=== PATIENT | female | born 1970 | race Caucasian/White ===

== ENCOUNTER 2018-01-14 08:28 | Emergency (ER) | payer OTHER, SELFPAY ==
[2018-01-14 08:35] VITALS: BP 109/79; PULSE 93; RESP 18; TEMP 38.2; O2SAT 97
--- NOTE | 2018-01-14 08:51 | W.ED.GENAD ---
Discharge Plan Disposition Patient Disposition: HOME Condition: Fair Discharge Details Chief Complaint: Fever Clinical Impression: URI (upper respiratory infection) Reason For Visit: LIZETH Primary Care Provider: Juliette Shrestha ED Provider: Melony Jaimes Home Meds and New Rx's Prescriptions: No Action No Known Home Meds RF: 0 Discharge Instructions Instructions: Upper Respiratory Infection (ED) Additional Instructions: Encourage hydration. Tylenol and/or ibuprofen as needed for discomfort or fever. Please follow-up with primary care in the next week if symptoms persist. If you develop difficulty breathing, shortness of breath, develop recurrent severe dizziness, chest pain or other new/worsening symptoms please seek care urgently once again Stand Alone Forms: Work Release Referrals: Juliette Shrestha [Primary Care Provider] - Discharge Data Discharge Date/Time-TO BE ENTERED AT DEPARTURE: 01/14/18 13:19 Medical Decision Making Patient is a 47-year-old female, brought in via EMS, with chief complaint of fever. She reports that she initially became ill 2 days ago. States that initially she was feeling cold. Subsequently developed body aches she states are typically in the hips and shoulders. Reports that beginning yesterday she noted a mild dry cough. Denies any difficulty breathing or shortness of breath. Reports that this morning, while getting out of the shower, she became dizzy. Describes further as being lightheaded. States that during this episode, which lasted approximately 15 minutes, she felt nauseated. The symptom has since subsided. Reports at this point that she is achy and feels warm but otherwise is no longer endorsing the lightheadedness. No chest pain. Patient has history of osteoarthritis, fibromyalgia and basal cell carcinoma. She denies any known sick contacts. Patient appears nontoxic, is resting comfortably. Lungs are clear on exam. No abnormalities noted in the oropharynx. Temp is 38.2. Exam is otherwise without acute abnormality. Will obtain flu swab, laboratory evaluation. At this point, patient's lungs are clear and do not feel that imaging is warranted we will hydrate the patient and give oral antipyretic. EKG reviewed by Dr. Lopez, no ischemic changes noted. NSR, rate of 92. Laboratory evaluation significant for minor amount of blood on the urinalysis. Patient is also noted to have 10-20 WBCs. Many epithelial cells moderate amount of bacteria. Patient denies any urinary symptoms. Secondary to contamination, has not been sent for culture. Patient reports she had urinary tract infections in the past and typically quite symptomatic, denies any symptoms at this point. We will not continue to evaluate for this any further. No leukocytosis. Magnesium is only minimally low, otherwise no electrolyte abnormalities. Influenza negative. discussed these findings with the patient. At this point, patient symptoms are most consistent with viral illness. Encourage hydration and she does seem to be doing better after hydration here. She responded well to antipyretic. Reports that she continues to feel fatigued but overall looks improved. Ambulated about the department with no desaturations or tachycardia. Cardiac she did not feel lightheaded, no presyncopal episodes. Patient was given strict return precautions. Encourage hydration. We discussed home remedies that may help with symptomatic management. I advised close follow-up with primary care. All of her questions and concerns were addressed and she is in agreement this plan. HPI General Mode of arrival: EMS. Date/Time Provider Initiated Documentation: 01/14/18 08:49. Limitations to Documentation: no limitations. Information obtained by: patient and family. History of Present Illness 47 year old F presents to the emergency department with the chief complaint of fever, described as mild, with intensity rated at 2 (endorses sore throat and body aches. no focal area of tenderness). Quality is described as aching, Patient started experiencing this day(s) (2) and it has been constant. No relieving factors improve symptom(s), No exacerbating factors reported and Movement worsens symptoms (patient has worsening symptoms with activity) . Patient notes cough, fever/chills, loss of appetite, malaise, nausea/vomiting (nasuea episode for 15 minutes, this has since resolved) and weakness; denies chest pain, diaphoresis, headaches, rash, shortness of breath and syncope (reports near syncope). Patient did receive the following treatments prior to arrival, none Related Data Home Medications Medication Instructions Recorded Confirmed Unknown [No Known Home Meds] 02/25/13 01/14/18 Allergies Allergy/AdvReac Type Severity Reaction Status Date / Time erythromycin base AdvReac Intermediate Nausea Unverified 01/14/18 08:38 [Erythromycin Base] General Stated Complaint: Fever JAXON: 3 Review of Systems Constitutional Reports as per HPI and Denies headache(s) Eyes Denies change in vision and Denies eye discharge ENT Denies ear discharge, Denies otalgia, Denies facial pain, Denies headache(s), Denies mouth pain, Reports nasal congestion, Reports nasal discharge, Reports sinus pressure and Reports sore throat Cardiovascular Denies chest pain, Denies syncope (presyncope prior to arrival when getting out of shower), Denies rapid heart rate, Denies pedal edema, Denies irregular heart rhythm, Denies claudication, Reports lightheadedness (presyncope prior to arrival when getting out of shower), Denies dyspnea and Denies dyspnea on exertion Respiratory Reports chest congestion, Reports cough, Denies dyspnea, Denies dyspnea on exertion and Denies wheezing Gastrointestinal Reports as per HPI, Denies abdominal pain, Reports nausea and Denies vomiting Genitourinary Denies system reviewed and no additional complaints, except as docu (denies any change in urinary habits) Musculoskeletal Reports as per HPI and Reports myalgias (endorses diffuse body aches) Integumentary/Breasts Denies rash Neurologic Denies syncope (presyncope prior to arrival when getting out of shower) and Denies headache(s) Allergic/Immunologic Denies wheezing [facility] Social History Smoking/Tobacco Use Status: Never Exam Const General: cooperative, healthy appearing, comfortable, no acute distress, well developed and well groomed Nutritional Appearance: average body habitus and well nourished Orientation: alert and awake [facility] Head: normal to inspection, normocephalic and atraumatic Ears: hearing grossly normal bilaterally, external ears normal and TM's normal bilaterally General nose exam: external nose normal and nares normal Face and sinus: normal facial exam, face symmetric and sinus tenderness maxillary Mouth: lip normal, tongue normal, oropharynx normal, mucous membranes dry (appears dry on exam), no muffled voice and no trismus Throat: posterior oropharynx abnormal (mild erythema), tonsils normal and uvula midline Eyes General: appearance normal, both eyes and all related structures Neck Neck: normal visual inspection, no lymphadenopathy and no meningeal signs Resp Effort & Inspection: normal respiratory effort, able to speak in complete sentences and no respiratory distress Auscultation: clear to auscultation bilaterally, no rales, no rhonchi and no wheezes Cardio Rate: regular rate Rhythm: regular rhythm Heart Sounds: S1 normal and S2 normal GI Inspection: normal to inspection Palpation: soft, not firm, no guarding and nontender Skin General skin exam: no rashes or lesions noted Lesions: no lesions Rashes: no rashes Neuro General: alert, awake and oriented x3 Cranial Nerves: CN's II-XI intact bilaterally Cognition: normal cognition Speech: speech normal Gait: normal gait Motor: muscle tone normal throughout Sensory Exam: no sensory deficits noted Extrem General: no pedal edema, no calf tenderness and normal gait Psych Appearance: grossly normal and well kempt Mental Status: mental status grossly normal Speech and Movement: speech and movement normal Mood: congruent mood Course Vital Signs Temperature 38.2 C H 01/14/18 08:35 Pulse 93 H 01/14/18 08:35 Respiratory Rate 18 01/14/18 08:35 Blood Pressure 109/79 01/14/18 08:35 Pulse Oximetry 97 01/14/18 08:35 Temperature 38.2 C H 01/14/18 08:35 Temperature Source Skin 01/14/18 08:35 Pulse 93 H 01/14/18 08:35 Respiratory Rate 18 01/14/18 08:35 Respiratory Effort 01/14/18 08:37 Blood Pressure 109/79 01/14/18 08:35 Pulse Oximetry 97 01/14/18 08:35 Oxygen Delivery Method Room Air 01/14/18 08:35 Oxygen Flow Rate 0 01/14/18 08:35 Pain Level 2 01/14/18 08:35
--- NOTE | 2018-01-14 09:01 | ED.GENADUL_ITS ---
Discharge Plan Disposition Patient Disposition: HOME Condition: Fair Discharge Details Chief Complaint: Fever Clinical Impression: URI (upper respiratory infection) Reason For Visit: LIZETH Primary Care Provider: Juliette Shrestha ED Provider: Melony Jaimes Home Meds and New Rx's Prescriptions: No Action No Known Home Meds RF: 0 Discharge Instructions Instructions: Upper Respiratory Infection (ED) Additional Instructions: Encourage hydration. Tylenol and/or ibuprofen as needed for discomfort or fever. Please follow-up with primary care in the next week if symptoms persist. If you develop difficulty breathing, shortness of breath, develop recurrent severe dizziness, chest pain or other new/worsening symptoms please seek care urgently once again Stand Alone Forms: Work Release Referrals: Juliette Shrestha [Primary Care Provider] - Discharge Data Discharge Date/Time-TO BE ENTERED AT DEPARTURE: 01/14/18 13:19 Medical Decision Making Patient is a 47-year-old female, brought in via EMS, with chief complaint of fever. She reports that she initially became ill 2 days ago. States that initially she was feeling cold. Subsequently developed body aches she states are typically in the hips and shoulders. Reports that beginning yesterday she noted a mild dry cough. Denies any difficulty breathing or shortness of breath. Reports that this morning, while getting out of the shower, she became dizzy. Describes further as being lightheaded. States that during this episode, which lasted approximately 15 minutes, she felt nauseated. The symptom has since subsided. Reports at this point that she is achy and feels warm but otherwise is no longer endorsing the lightheadedness. No chest pain. Patient has history of osteoarthritis, fibromyalgia and basal cell carcinoma. She denies any known sick contacts. Patient appears nontoxic, is resting comfortably. Lungs are clear on exam. No abnormalities noted in the oropharynx. Temp is 38.2. Exam is otherwise without acute abnormality. Will obtain flu swab, laboratory evaluation. At this point, patient's lungs are clear and do not feel that imaging is warranted we will hydrate the patient and give oral antipyretic. EKG reviewed by Dr. Lopez, no ischemic changes noted. NSR, rate of 92. Laboratory evaluation significant for minor amount of blood on the urinalysis. Patient is also noted to have 10-20 WBCs. Many epithelial cells moderate amount of bacteria. Patient denies any urinary symptoms. Secondary to contamination, has not been sent for culture. Patient reports she had urinary tract infections in the past and typically quite symptomatic, denies any symptoms at this point. We will not continue to evaluate for this any further. No leukocytosis. Magnesium is only minimally low, otherwise no electrolyte abnormalities. Influenza negative. discussed these findings with the patient. At this point, patient symptoms are most consistent with viral illness. Encourage hydration and she does seem to be doing better after hydration here. She responded well to antipyretic. Reports that she continues to feel fatigued but overall looks improved. Ambulated about the department with no desaturations or tachycardia. Cardiac she did not feel lightheaded, no presyncopal episodes. Patient was given strict return precautions. Encourage hydration. We discussed home remedies that may help with symptomatic management. I advised close follow-up with primary care. All of her questions and concerns were addressed and she is in agreement this plan. HPI General Mode of arrival: EMS . Date/Time Provider Initiated Documentation: 01/14/18 08:49 . Limitations to Documentation: no limitations . Information obtained by: patient and family . History of Present Illness 47 year old F presents to the emergency department with the chief complaint of fever, described as mild, with intensity rated at 2 (endorses sore throat and body aches. no focal area of tenderness). Quality is described as aching, Patient started experiencing this day(s) (2) and it has been constant. No relieving factors improve symptom(s), No exacerbating factors reported and Movement worsens symptoms (patient has worsening symptoms with activity) . Patient notes cough, fever/chills, loss of appetite, malaise, nausea/vomiting ( nasuea episode for 15 minutes, this has since resolved) and weakness; denies chest pain, diaphoresis, headaches, rash, shortness of breath and syncope ( reports near syncope). Patient did receive the following treatments prior to arrival, none Related Data Home Medications Medication Instructions Recorded Confirmed Unknown [No Known Home Meds] 02/25/13 01/14/18 Allergies Allergy/AdvReac Type Severity Reaction Status Date / Time erythromycin base AdvReac Intermediate Nausea Unverified 01/14/18 08:38 [Erythromycin Base] General Stated Complaint: Fever JAXON: 3 Review of Systems Constitutional Reports as per HPI and Denies headache(s) Eyes Denies change in vision and Denies eye discharge ENT Denies ear discharge, Denies otalgia, Denies facial pain, Denies headache(s), Denies mouth pain, Reports nasal congestion, Reports nasal discharge, Reports sinus pressure and Reports sore throat Cardiovascular Denies chest pain, Denies syncope (presyncope prior to arrival when getting out of shower), Denies rapid heart rate, Denies pedal edema, Denies irregular heart rhythm, Denies claudication, Reports lightheadedness (presyncope prior to arrival when getting out of shower), Denies dyspnea and Denies dyspnea on exertion Respiratory Reports chest congestion, Reports cough, Denies dyspnea, Denies dyspnea on exertion and Denies wheezing Gastrointestinal Reports as per HPI, Denies abdominal pain, Reports nausea and Denies vomiting Genitourinary Denies system reviewed and no additional complaints, except as docu (denies any change in urinary habits) Musculoskeletal Reports as per HPI and Reports myalgias (endorses diffuse body aches) Integumentary/Breasts Denies rash Neurologic Denies syncope (presyncope prior to arrival when getting out of shower) and Denies headache(s) Allergic/Immunologic Denies wheezing [facility] Social History Smoking/Tobacco Use Status: Never Exam Const General: cooperative, healthy appearing, comfortable, no acute distress, well developed and well groomed Nutritional Appearance: average body habitus and well nourished Orientation: alert and awake [facility] [place] Head: normal to inspection, normocephalic and atraumatic Ears: hearing grossly normal bilaterally, external ears normal and TM's normal bilaterally General nose exam: external nose normal and nares normal Face and sinus: normal facial exam, face symmetric and sinus tenderness maxillary Mouth: lip normal, tongue normal, oropharynx normal, mucous membranes dry ( appears dry on exam), no muffled voice and no trismus Throat: posterior oropharynx abnormal (mild erythema), tonsils normal and uvula midline Eyes General: appearance normal, both eyes and all related structures Neck Neck: normal visual inspection, no lymphadenopathy and no meningeal signs Resp Effort & Inspection: normal respiratory effort, able to speak in complete sentences and no respiratory distress Auscultation: clear to auscultation bilaterally, no rales, no rhonchi and no wheezes Cardio Rate: regular rate Rhythm: regular rhythm Heart Sounds: S1 normal and S2 normal GI Inspection: normal to inspection Palpation: soft, not firm, no guarding and nontender Skin General skin exam: no rashes or lesions noted Lesions: no lesions Rashes: no rashes Neuro General: alert, awake and oriented x3 Cranial Nerves: CN's II-XI intact bilaterally Cognition: normal cognition Speech: speech normal Gait: normal gait Motor: muscle tone normal throughout Sensory Exam: no sensory deficits noted Extrem General: no pedal edema, no calf tenderness and normal gait Psych Appearance: grossly normal and well kempt Mental Status: mental status grossly normal Speech and Movement: speech and movement normal Mood: congruent mood Course Vital Signs Temperature 38.2 C H 01/14/18 08:35 Pulse 93 H 01/14/18 08:35 Respiratory Rate 18 01/14/18 08:35 Blood Pressure 109/79 01/14/18 08:35 Pulse Oximetry 97 01/14/18 08:35 Temperature 38.2 C H 01/14/18 08:35 Temperature Source Skin 01/14/18 08:35 Pulse 93 H 01/14/18 08:35 Respiratory Rate 18 01/14/18 08:35 Respiratory Effort 01/14/18 08:37 Blood Pressure 109/79 01/14/18 08:35 Pulse Oximetry 97 01/14/18 08:35 Oxygen Delivery Method Room Air 01/14/18 08:35 Oxygen Flow Rate 0 01/14/18 08:35 Pain Level 2 01/14/18 08:35
[2018-01-14] MEDS: Normal Saline 1,000 ML 1000 ML IV (09:30)
[2018-01-14 10:08] LABS: Abs Immature Grans 0.02 k/cumm (0.0-0.09); Absolute Basophil Count 0.03 k/cumm (0.0-0.2); Absolute Eosinophil Count 0.13 k/cumm (0.0-0.7); Absolute Neutrophil Count 6.16 k/cumm (1.2-6.7); Basophils % 0.4; Eosinophils % 1.5; HCT 36.1 % (36.0-46.0); HGB 11.6 g/dL (12.0-15.5); Immature Grans % 0.2; Lymphocytes % 17.8; Mean Corp. HGB Concentration 32.1 g/dL (32.0-36.0); Mean Corpuscular Hemoglobin 23.3 pg (27.0-33.0); Mean Corpuscular Volume 72.6 fL (80-95); Mean Platelet Volume 9.2 fL (8.0-11.0); Monocytes % 7.1; Platelet Count 336 x1000/uL (130-400); RBC 4.97 m/cumm (4.00-5.20); RBC Distribution Width 15.4 % (11.7-14.6); White Blood Cell Count 8.44 k/cumm (4.4-10.8)
[2018-01-14 10:19] LABS: ALT 26 U/L (12-78); AST 19 U/L (15-37); Albumin 3.2 g/dL (3.4-5.0); Alkaline Phosphatase 134 U/L (46-116); Anion Gap 10.6 mmol/L (3-11); BUN 8 mg/dL (7-18); Bilirubin, Total 0.2 mg/dL (0.2-1.0); CO2 23.4 mmol/L (21.0-32.0); CREATININE 0.85 mg/dL (0.55-1.02); Calcium 8.8 mg/dL (8.5-10.1); Chloride 101 mmol/L (98-107); Glucose 95 mg/dL (70-100); Magnesium 1.7 mg/dL (1.8-2.4); Potassium 3.6 mmol/L (3.5-5.1); Sodium 135 mmol/L (136-145); Total Protein 8.3 g/dL (6.4-8.2); Troponin I < 0.02 ng/mL (0.00-0.06)
[2018-01-14 10:33] LABS: Anisocytosis 1+; Diff Comment RBC Morph Reviewed
[2018-01-14 10:34] LABS: Hypochromasia 1+; Microcytosis 2+; Polychromasia Present
[2018-01-14] MEDS: Ibuprofen 600 MG TAB PO (11:20)
[2018-01-14 11:23] VITALS: BP 111/64; PULSE 92; RESP 18; TEMP 37.1; O2SAT 98
[2018-01-14 12:15] LABS: Bilirubin Negative (Negative); Blood Moderate (Negative); Clarity Clear; Glucose Negative (Negative); Ketones Negative (Negative); Leukocyte Esterase Trace (Negative); Nitrite Negative (Negative); Specific Gravity 1.015 (1.005-1.025); Urobilinogen 0.2 EU/dL (Up TO 0.2)
[2018-01-14 12:30] LABS: Bacteria Moderate HPF (Negative); C & S Indicated? No/Sq. Contamination; Casts Negative LPF (Negative); Crystals Negative HPF (Negative); Epithelial Cells Many HPF (Negative); Mucus Moderate (Negative); RBC 20-50 (0-2)
[2018-01-14 12:56] VITALS: BP 118/75; PULSE 88; RESP 16; TEMP 36.6; O2SAT 97
== END 2018-01-14 13:19 | disposition home or self-care (01) ==
PROVIDERS: Emergency Provider Physician Assistant; PCP Family Medicine
DX: J06.9 Acute upper respiratory infection, unspecified (principal); R42 Dizziness and giddiness
CPT/HCPCS: 36415; 80053; 87449; 93005; 96360; 99284; 81003; 81015; 83735; 84484; 85025; 93010

== ENCOUNTER 2019-05-10 10:41 | Emergency (ER) | payer BC, SELFPAY ==
[2019-05-10 10:46] VITALS: BP 125/78; PULSE 80; RESP 16; TEMP 36.6; O2SAT 100
--- NOTE | 2019-05-10 11:02 | W.ED.GENAD ---
Discharge Plan Disposition Patient Disposition: HOME Condition: Stable Discharge Details Chief Complaint: RashLesion Clinical Impression: Rash Primary Care Provider: Juliette Shrestha ED Provider: Jose Lopez Home Meds and New Rx's Prescriptions: New prednisone 20 mg tablet 40 mg PO DAILY 4 Days Qty: 8 RF: 0 Discharge Instructions Instructions: Acute Rash (ED), General Allergic Reaction (ED) Additional Instructions: Please take Benadryl 25 to 50 mg every 8 hours as needed for itching. Please take prednisone as prescribed. Your next dose is on 05/11/2019. I recommend you remove necklace and keep this off until symptoms completely resolved and 48 hours after completing prednisone therapy. And then trial again to see if this is the allergen. Please contact your primary care physician to arrange follow-up. Return to the ER for any worsening or new concerning symptoms. Referrals: Juliette Shrestha [Primary Care Provider] - Discharge Data Discharge Date/Time-TO BE ENTERED AT DEPARTURE: 05/10/19 12:39 Medical Decision Making 11:05 -- 48-year-old female here with new onset itchy rash involving her neck, upper chest upper back. Given prior nickel allergy and new necklace, suspect likely new jewelry as allergen. No oropharyngeal edema, lungs clear to auscultation. Patient was advised to remove the necklace. Plan to treat with Benadryl and prednisone and will reassess. -- On reassessment patient has had some improvement in rash. Continues to have no oropharyngeal swelling or respiratory symptoms. Plan will be to continue prednisone and Benadryl. I again encouraged her to remove her necklace and explained my reasoning for this. Patient was encouraged to follow-up with her primary care physician and to return immediately should she have any worsening or new concerning symptoms. HPI General Mode of arrival: ambulatory. Date/Time Provider Initiated Documentation: 05/10/19 10:52. Limitations to Documentation: no limitations. Information obtained by: patient. HPI Narrative: 48-year-old female presents with chief complaint of rash. Patient notes that she woke up with rash this morning. Rash was not present yesterday. Rash is localized to her neck upper chest, upper back. She also has some itching right lower leg. Rash is quite itchy. Slightly raised. Patient denies any known exposure to new fragrances, soaps or detergents. No new foods. She does have a nickel allergy and states that she got a new necklace and ring that she has been wearing for the past couple days. No associated tongue or lip swelling or difficulty breathing. Related Data Home Medications Medication Instructions Recorded Confirmed prednisone 40 mg PO DAILY 4 Days #8 tab 05/10/19 Previous Rx's Medication Instructions Recorded prednisone 40 mg PO DAILY 4 Days #8 tab 05/10/19 Allergies Allergy/AdvReac Type Severity Reaction Status Date / Time erythromycin base AdvReac Intermediate Nausea Unverified 05/10/19 10:48 [Erythromycin Base] General Stated Complaint: RashLesion JAXON: 4 Review of Systems All systems reviewed & are unremarkable except as noted in HPI and below Constitutional Constitutional: Denies fever(s) Integumentary/Breasts Skin/Breast: Reports as per HPI [facility] Social History Smoking/Tobacco Use Status: Never Drug use: Never Substance use type: does not use Do you feel safe at home: Yes Do you feel safe in your relationship?: Yes Exam Const General: cooperative and no acute distress HENMT Face and sinus: no edema Mouth: lip normal and moist mucous membranes Throat: posterior oropharynx normal Eyes Conjunctivae: normal conjunctivae Sclera: normal sclerae Neck Neck: trachea midline and supple Resp Auscultation: clear to auscultation bilaterally, no rales, no rhonchi and no wheezes Cardio Jugular venous pressure: no JVD Rate: regular rate and not tachycardic Rhythm: regular rhythm Skin Rashes: rashes noted (Fine, red, slightly raised rash neck and upper chest) Neuro General: alert, awake and tone normal Extrem General: no edema Course Vital Signs Vital signs: Vital Signs Temperature 36.6 C 05/10/19 10:46 Pulse 80 05/10/19 10:46 Respiratory Rate 16 05/10/19 10:46 Blood Pressure 125/78 05/10/19 10:46 Pulse Oximetry 100 05/10/19 10:46 Temperature 36.6 C 05/10/19 10:46 Temperature Source Skin 05/10/19 10:46 Pulse 80 05/10/19 10:46 Respiratory Rate 16 05/10/19 10:46 Respiratory Effort Non-Labored 05/10/19 10:50 Blood Pressure 125/78 05/10/19 10:46 Blood Pressure Position Sitting 05/10/19 10:46 Pulse Oximetry 100 05/10/19 10:46 Oxygen Delivery Method Room Air 05/10/19 10:46 Oxygen Flow Rate 0 05/10/19 10:46 Pain Level 6 05/10/19 10:46
[2019-05-10] MEDS: predniSONE 20 MG TAB 60 MG PO (11:07)
[2019-05-10] MEDS: diphenhydrAMINE 25 MG CAP 50 MG PO (11:07)
[2019-05-10 12:39] VITALS: BP 123/82; PULSE 68; RESP 16; O2SAT 100
== END 2019-05-10 12:39 | disposition home or self-care (01) ==
PROVIDERS: Emergency Provider Student in an Organized Health Care Education/Training Program; PCP Family Medicine
DX: R21 Rash and other nonspecific skin eruption (principal)
CPT/HCPCS: 99283; J7512

== ENCOUNTER 2021-04-20 19:46 | Outpatient (REF) | payer OTHER, SELFPAY ==
[2021-04-21 15:47] LABS: COVID-19 RT-PCR UVMMC Result Positive (Negative)
== END 2021-04-20 19:47 | disposition home or self-care (01) ==
LOC: NCHCN 19:46
PROVIDERS: PCP Family Medicine; Visit Provider Family Medicine
DX: Z20.822 Contact with and (suspected) exposure to COVID-19 (principal); J06.9 Acute upper respiratory infection, unspecified
CPT/HCPCS: U0003

== ENCOUNTER 2021-07-06 10:05 | Outpatient (REF) | payer OTHER, SELFPAY ==
--- NOTE | 2021-07-06 09:00 | PAPFT_PTH ---
PATIENT: Zoya Corbin LOC: NCN #:[id number] AGE/SX: 50/F ROOM: RE07/06/[address]: Juliette Shrestha : 1970 BED: DIS: 07/06/2021 SPEC #: [id number] RECD: 07/06/21 17:38 STATUS: CLEM REArlen #: [id number] JUAN FRANCISCO: 07/06/21 09:[address]: Juliette Shrestha DEPT: [facility] Cytology RECD BY: Leah Phillip Tissues: 1 - CX/ENDOCX FOR PAP SMEARS Procedures: PAP THIN PREP/UVM Screening HPV DNA PROBE Comments: [id number]
[2021-07-06 17:26] LABS: HGB 12.3 g/dL (11.2-15.7); MCH 25.7 pg (27.0-33.0); MCHC 31.5 % (32.0-36.0); MCV 81.4 fL (80-95); MPV 9.7 fL (8.0-11.0); Platelet Count 371 10^3/uL (130-400); RBC 4.79 10^6/uL (3.93-5.22); RDW 14.3 % (11.7-14.6); RDW-SD 41.9 fL; WBC 9.91 10^3/uL (4.4-10.8)
[2021-07-06 17:45] LABS: ALT 32 U/L (14-59); AST 18 U/L (15-37); Albumin 3.6 g/dL (3.4-5.0); Alkaline Phosphatase 126 U/L (46-116); Anion Gap 9.4 mmol/L (3-11); BUN 18 mg/dL (7-18); Bilirubin, Total 0.3 mg/dL (0.2-1.0); CO2 26.6 mmol/L (21.0-32.0); CREATININE 0.7 mg/dL (0.55-1.02); Calcium 8.9 mg/dL (8.5-10.1); Calculated LDL 123 mg/dL (<100); Chloride 103 mmol/L (98-107); Cholesterol 217 mg/dL (<200); Glucose 84 mg/dL (74-106); HDL Cholesterol 73 mg/dL (40-60); Potassium 4.1 mmol/L (3.5-5.1); Sodium 139 mmol/L (136-145); Total Protein 7.8 g/dL (6.4-8.2); Triglyceride 106 mg/dL (<150)
== END 2021-07-06 10:06 | disposition home or self-care (01) ==
LOC: NCHCN 10:05
PROVIDERS: PCP Family Medicine; Visit Provider Family Medicine
DX: Z00.00 Encounter for general adult medical examination without abnormal findings (principal); N92.0 Excessive and frequent menstruation with regular cycle; Z13.220 Encounter for screening for lipoid disorders; Z12.4 Encounter for screening for malignant neoplasm of cervix; Z11.51 Encounter for screening for human papillomavirus (HPV); Z01.419 Encounter for gynecological examination (general) (routine) without abnormal findings
CPT/HCPCS: 80053; 80061; 82306; 85027; 88142; 87624

== ENCOUNTER 2021-08-07 02:31 | Outpatient (CLI) | payer OTHER, SELFPAY ==
--- NOTE | 2021-08-07 07:40 | DI.MAMMO_ITS ---
Exam(s) MAMMO SCREENING EXAM: MAMMO SCREENING CLINICAL HISTORY: SCREENING, Z12.31 TECHNIQUE: Bilateral full field digital CC and MLO mammographic images were obtained with 3D tomosyn thesis and utilizing computer aided detection (CAD). COMPARISON: Available for comparison. FINDINGS: Masses/Architectural Distortion: None seen. Microcalcifications: No suspicious pleomorphic-type are seen. Skin Thickening/Nipple Retraction: None. IMPRESSION: 1. No significant interval change with no specific features of malignancy noted. 2. Unless there is more urgent need, screening mammography is recommended, as per [employer] guidelines. BI-RADS Category 1 - Negative Breast Density - Category A - Almost entirely fatty Breast density category C or D implies that the patient has dense breast tissue. Dense breast tissue is very common and is not abnormal but dense breast tissue can make it harder to find cancer on a ma mmogram. Also, dense breast tissue may increase their breast cancer risk. This information about the result of the mammogram report was provided to the patient to raise their awareness. Use this report when you speak with the patient about their risks for breast cancer, which includes their family hist ory. At that time, you may recommend for more screening tests (Ultrasound or MRI) as they might be us eful based on their risk. A negative radiographic report should not delay biopsy if a dominant or clinically suspicious mass is present. Up to ten percent of cancers are not identified on mammography. A negative report may reinforce clinical impression. Adenosis and dense breasts may obscure an underlying neoplasm. False positive reports average 6 to 10%. Patient will receive a letter notifying them of these results.
== END 2021-08-07 02:51 ==
LOC: DI 02:32
PROVIDERS: PCP Family Medicine; Visit Provider Family Medicine
DX: Z12.31 Encounter for screening mammogram for malignant neoplasm of breast (principal)
CPT/HCPCS: 77063; 77067

== ENCOUNTER → 2023-04-04 02:48 | Outpatient (CLI) | payer OTHER, SELFPAY ==
--- NOTE | 2023-04-04 08:00 | DI.MAMMO_ITS ---
Exam(s) MAMMO SCREENING EXAM: MAMMO SCREENING CLINICAL HISTORY: SCREENING,Z12.31. TECHNIQUE: Bilateral full field digital CC and MLO mammographic images were obtained with 3D tomosyn thesis and utilizing computer aided detection (CAD). COMPARISON: Prior mammograms were reviewed. FINDINGS: There has been no significant change in the appearance and distribution of the fibroglandular tissue. There are no CAD designations. There are no new spiculated masses nor malignant appearing microcalcification groups. There is no significant architectural distortion nor skin thickening-retraction. IMPRESSION: No radiographic evidence of malignancy. BI-RADS Category 1 - Negative Breast Density - Category A - Almost entirely fatty Breast density Category C or D implies that the patient has dense breast tissue. Dense breast tissue can make it harder to find cancer on a mammogram. Dense breast tissue is also associated with an incr eased risk of breast cancer. This information about the result of the mammogram report was provided to the patient to raise their awareness. Use this report when you speak with the patient about their risks for breast cancer, which includes their family history. At that time, you may recommend additional screening tests (Ultrasoun d or MRI) as these tests may add significant information. A negative radiographic report should not delay biopsy if a dominant or clinically suspicious mass is present. Up to ten percent of cancers are not identified on mammography. A negative report may reinforce clinical impression. Adenosis and dense breasts may obscure an underlying neoplasm. False positive reports average 6 to 10%. Patient will receive a letter notifying them of these results.
== END ==
PROVIDERS: PCP Family Medicine; Visit Provider Family Medicine
DX: Z12.31 Encounter for screening mammogram for malignant neoplasm of breast (principal)
CPT/HCPCS: 77063; 77067

== ENCOUNTER 2024-03-24 09:36 | Outpatient (REF) | payer OTHER, SELFPAY ==
[2024-03-24 15:57] LABS: ALT 24 U/L (14-59); AST 20 U/L (15-37); Albumin 3.6 g/dL (3.4-5.0); Alkaline Phosphatase 143 U/L (46-116); Anion Gap 6.7 mmol/L (3-11); BUN 18 mg/dL (7-18); Bilirubin, Total 0.32 mg/dL (0.2-1.0); CO2 29.3 mmol/L (21.0-32.0); CREATININE 0.8 mg/dL (0.55-1.02); Calcium 9.5 mg/dL (8.5-10.1); Calculated LDL 133 mg/dL (<100); Chloride 105 mmol/L (98-107); Cholesterol 240 mg/dL (<200); Glucose 90 mg/dL (74-106); HDL Cholesterol 83 mg/dL (40-60); Potassium 4.1 mmol/L (3.5-5.1); Sodium 141 mmol/L (136-145); Triglyceride 120 mg/dL (<150); Vitamin D 25 Total 33.5 ng/mL (30-100)
== END 2024-03-24 09:37 | disposition home or self-care (01) ==
LOC: NCHCN 09:36
PROVIDERS: PCP Family Medicine; Visit Provider Family Medicine
DX: Z00.00 Encounter for general adult medical examination without abnormal findings (principal)
CPT/HCPCS: 80053; 80061; 82306

== ENCOUNTER 2024-07-02 01:15 | Outpatient (CLI) | payer OTHER, SELFPAY ==
--- NOTE | 2024-07-02 | DI.DEXA_ITS ---
Exam(s) XR DEXA BONE DENSITY W/WO SHERICE EXAM: XR DEXA BONE DENSITY W/WO SHERICE CLINICAL HISTORY: Menopausal and female climacteric states, N95.1 TECHNIQUE: COMPARISON: No exams were available for comparison FINDINGS: Lateral Spine Image: Unremarkable. No compression deformities identified. Left hip: Total T-Score: 0.6 Total Z-Score: 1.1 T- and Z-scores: Within normal limits. Lumbar Spine: Total T-Score: 0.3 Total Z-Score: 0.2 T- and Z-scores: Within normal limits. IMPRESSION: No evidence of osteoporosis.
== END 2024-07-02 01:35 ==
LOC: DI 01:15
PROVIDERS: PCP Family Medicine; Visit Provider Family Medicine
DX: N95.1 Menopausal and female climacteric states (principal)
CPT/HCPCS: 77080